=== PATIENT | male | born 1960 | race Two or more races ===

== ENCOUNTER 2023-09-09 15:51 | Inpatient (IN) | payer MEDICAID, OTHER ==
[~2023-09-09] VITALS: Ht 177.8 cm; Wt 95.4 kg
[2023-09-09 16:57] LABS: Basophils # (auto) 0.1 10 ^3/uL (0-0.2); Basophils % (auto) 0.8 % (0.0-2.0); Eosinophils # (auto) 1.4 10 ^3/uL (0-0.8); Eosinophils % (auto) 13.6 % (0.0-7.0); Hematocrit 42.3 % (41.0-53.0); Hemoglobin 14.5 g/dL (13.5-17.5); Lymphocytes # (auto) 2.6 10 ^3/uL (0.4-5.4); Mean Corpuscular Hemoglobin 28.6 pg (28.0-32.0); Mean Corpuscular Hgb Conc. 34.4 g/dL (32.0-36.0); Mean Corpuscular Volume 83.3 fL (80.0-100.0); Monocytes # (auto) 1.1 10 ^3/uL (0-1.3); Monocytes % (auto) 11.2 % (0.0-12.0); Neutrophils # (auto) 4.8 10 ^3/uL (1.6-8.6); Neutrophils % (auto) 48.4 % (37.0-80.0); Red Blood Cells 5.08 10^6/uL (4.5-5.90); Red Cell Distribution Width 13.9 % (11.8-14.3); White Blood Cell 9.9 10^3/uL (4.4-10.8)
[2023-09-09 17:09] LABS: Alanine Aminotransferase 36 U/L (7-40); Albumin 3.9 g/dL (3.2-4.8); Alkaline Phosphatase 114 U/L (46-116); Anion Gap 8 (5-15); Aspartate Aminotransferase 25 U/L (13-40); BUN/Creatinine Ratio 12.7 (10.0-20.0); Bilirubin, Total 0.4 mg/dL (0.2-1.0); Blood Urea Nitrogen 14 mg/dL (9-23); Calcium 9.2 mg/dL (8.7-10.4); Carbon Dioxide 24 mmol/L (20-30); Chloride 104 mmol/L (98-107); Glucose 90 mg/dL (74-106); Lipase 42 U/L (12-53); Potassium 3.5 mmol/L (3.5-5.1); Sodium 136 mmol/L (136-145); Total Protein 8.6 g/dL (5.7-8.2)
[2023-09-09 20:08] LABS: Urine Bacteria FEW /hpf (None Seen); Urine Blood Negative /uL (Negative); Urine Clarity Clear (Clear); Urine Color Yellow (Yellow); Urine Mucus MODERATE (None Seen); Urine Protein, UAD 1+ (Negative); Urine Specific Gravity 1.028 (1.001-1.035); Urine Urobilinogen Normal (Negative); Urine WBC 2 /hpf (0 - 3); Urine pH 5.5 (5.0-9.0)
[2023-09-09] MEDS: HYDROcodone-ACET 10/325MG TAB PO ONE (22:03)
[2023-09-09] MEDS ORDERED: ACETAMINOPHEN 325 MG TAB PO PRN (23:15)
[2023-09-09] MEDS ORDERED: ONDANSETRON HCL 4 MG/2 ML VIAL IV PRN (23:15)
[2023-09-09] MEDS ORDERED: MORPHINE SULFATE INJ 2 MG/ml SYRG IV PRN ×2 (23:15→23:30)
[2023-09-09] MEDS ORDERED: DOCUSATE SOD 100 MG CAP PO PRN (23:15)
[2023-09-09] MEDS ORDERED: NITROGLYCERIN 0.4 MG SL TAB SL PRN (23:30)
[2023-09-10] VITALS (9 sets, daily range): BP systolic 116–136; BP diastolic 67–88; PULSE 81–116; RESP 16–20; TEMP 98–99.2; O2SAT 94–99
[2023-09-10 04:49] LABS: Basophils # (auto) 0.1 10 ^3/uL (0-0.2); Basophils % (auto) 0.7 % (0.0-2.0); Eosinophils # (auto) 1.3 10 ^3/uL (0-0.8); Hematocrit 39.6 % (41.0-53.0); Hemoglobin 13.9 g/dL (13.5-17.5); Lymphocytes # (auto) 1.9 10 ^3/uL (0.4-5.4); Lymphocytes % (auto) 23.2 % (10.0-50.0); Mean Corpuscular Hemoglobin 29.1 pg (28.0-32.0); Mean Corpuscular Volume 83.1 fL (80.0-100.0); Monocytes # (auto) 0.9 10 ^3/uL (0-1.3); Monocytes % (auto) 10.8 % (0.0-12.0); Neutrophils # (auto) 4.1 10 ^3/uL (1.6-8.6); Neutrophils % (auto) 49.4 % (37.0-80.0); Nucleated Red Blood Cells % 0.1 %; Red Blood Cells 4.77 10^6/uL (4.5-5.90); Red Cell Distribution Width 14.2 % (11.8-14.3); White Blood Cell 8.2 10^3/uL (4.4-10.8)
[2023-09-10] MEDS ORDERED: LEVO500T91 PO (04:49)
[2023-09-10] MEDS: HYDROcodone-ACET 5/325MG TAB PO PRN (04:52)
[2023-09-10 05:01] LABS: Alanine Aminotransferase 30 U/L (7-40); Albumin 3.5 g/dL (3.2-4.8); Alkaline Phosphatase 94 U/L (46-116); Anion Gap 8 (5-15); Aspartate Aminotransferase 18 U/L (13-40); BUN/Creatinine Ratio 12.7 (10.0-20.0); Bilirubin, Total 0.5 mg/dL (0.2-1.0); Blood Urea Nitrogen 13 mg/dL (9-23); Calcium 8.9 mg/dL (8.7-10.4); Carbon Dioxide 26 mmol/L (20-30); Chloride 103 mmol/L (98-107); Glucose 105 mg/dL (74-106); Potassium 3.4 mmol/L (3.5-5.1); Sodium 137 mmol/L (136-145); Total Protein 7.8 g/dL (5.7-8.2)
[2023-09-10 05:07] LABS: Eosinophils % (auto) 15.9 % (0.0-7.0)
[2023-09-10 14:45] LABS: Amphetamine Screen, Urine Neg (NEGATIVE); Barbiturate Scree,Urine Neg (NEGATIVE); Benzodiazephine Screen, Urine Neg (NEGATIVE); Cocaine Screen, Urine Neg (NEGATIVE); Opiate Scree,Urine Neg (NEGATIVE); Phencyclidine Screen, Urine Neg (NEGATIVE)
[2023-09-10 14:46] LABS: Cannabinoid Screen, Urine Neg (NEGATIVE)
[2023-09-10] MEDS: POTASSIUM CHL 20 Meq TABLET PO ONE (16:49)
[2023-09-10] MEDS: IOHEXOL 300 MG/ML 100ML BOTTLE IJ ONE (18:52)
[2023-09-11 01:21] VITALS: BP 129/63; PULSE 75; RESP 18; TEMP 98.5; O2SAT 94
[2023-09-11 05:00] VITALS: BP 123/80; PULSE 92; RESP 18; TEMP 98.2; O2SAT 96
[2023-09-11 06:01] LABS: Anion Gap 7 (5-15); Carbon Dioxide 26 mmol/L (20-30); Chloride 103 mmol/L (98-107); Potassium 3.7 mmol/L (3.5-5.1); Sodium 136 mmol/L (136-145)
[2023-09-11 06:02] LABS: Calcium 9.3 mg/dL (8.7-10.4)
[2023-09-11 06:07] LABS: BUN/Creatinine Ratio 14.1 (10.0-20.0); Blood Urea Nitrogen 14 mg/dL (9-23); Glucose 105 mg/dL (74-106)
[2023-09-11 06:19] LABS: Basophils # (auto) 0 10 ^3/uL (0-0.2); Basophils % (auto) 0.5 % (0.0-2.0); Eosinophils # (auto) 1.3 10 ^3/uL (0-0.8); Eosinophils % (auto) 14.9 % (0.0-7.0); Hematocrit 38.6 % (41.0-53.0); Hemoglobin 13.6 g/dL (13.5-17.5); Lymphocytes % (auto) 22.5 % (10.0-50.0); Mean Corpuscular Hemoglobin 29.2 pg (28.0-32.0); Mean Corpuscular Hgb Conc. 35.3 g/dL (32.0-36.0); Mean Corpuscular Volume 82.7 fL (80.0-100.0); Monocytes # (auto) 0.9 10 ^3/uL (0-1.3); Monocytes % (auto) 10.4 % (0.0-12.0); Neutrophils # (auto) 4.5 10 ^3/uL (1.6-8.6); Neutrophils % (auto) 51.7 % (37.0-80.0); Red Blood Cells 4.66 10^6/uL (4.5-5.90); White Blood Cell 8.7 10^3/uL (4.4-10.8)
[2023-09-11 09:00] VITALS: BP 104/76; PULSE 89; RESP 15; TEMP 98.2; O2SAT 96
[2023-09-11 09:08] LABS: INR 1.21 (0.9-1.15); Partial Thromboplastin Time 33.6 SEC (24.5-34.5); Prothrombin Time 12.6 sec (9.3-11.8)
[2023-09-11 11:02] LABS: Free T3 2.57 pg/mL (2.3-4.2)
[2023-09-11 11:03] LABS: Free T4 (Free Thyroxine) 1.03 ng/dL (0.89-1.76)
[2023-09-11] MEDS: LIDOCAINE 2%HCL (LOCAL ANESTH.) INJ 10ml MDV ONE (11:05)
[2023-09-11] MEDS: MIDAZOLAM HCL 2MG/2ML 2ml VIAL (1mg/ml) IV ONE (11:05)
[2023-09-11] MEDS: fentaNYL CITRATE 100 MCG/2 ML VL IV ONE (11:05)
[2023-09-11 12:56] VITALS: BP 120/77; PULSE 94; RESP 16; TEMP 98; O2SAT 96
[2023-09-11] MEDS: ENOXAPARIN SOD 40 MG/0.4 ML SYRINGE SC ONE (14:30)
[2023-09-11] MEDS: GABAPENTIN 100 MG CAP PO SCH (14:32)
[2023-09-11] MEDS: CAPSAICIN 0.025% CREAM 60GM TOP SCH (14:32)
[2023-09-11] MEDS ORDERED: GABA-1308 PO (16:18)
[2023-09-11] MEDS ORDERED: [UNRECOGNIZED DRUG - CODE] EX (16:18)
[2023-09-12] MEDS ORDERED: ENOXAPARIN SOD 40 MG/0.4 ML SYRINGE SC SCH (10:00)
== END 2023-09-11 18:00 | disposition home or self-care (01) | DRG 144 ==
LOC: ER 15:51 → TELE 23:31 → TELE-CENTR 09-10 04:20 → CENTRAL 09-10 15:26
PROVIDERS: ADMIT Student in an Organized Health Care Education/Training Program; ATTEND Student in an Organized Health Care Education/Training Program
PROC: 0BBF3ZX Excision of Right Lower Lung Lobe, Percutaneous Approach, Diagnostic (ICD-10-PCS; principal; 2023-09-11)
DX: R91.8 Other nonspecific abnormal finding of lung field (principal); I11.0 Hypertensive heart disease with heart failure; I50.32 Chronic diastolic (congestive) heart failure; E87.6 Hypokalemia; Z82.49 Family history of ischemic heart disease and other diseases of the circulatory system; Z79.899 Other long term (current) drug therapy
CPT/HCPCS: 10005; 36415; 71045; 71250; 71260; 76705; 77012; 80048; 80053; 80307; 81001; 82607; 83690; 83880; 84439; 84443; 84481; 84484; 85025; 85610; 85730; 93005; 93306; 93970; 93971; G0378; J2001

== ENCOUNTER 2023-09-26 19:47 | Emergency (ER) | payer MEDICAID ==
[~2023-09-26] VITALS: Ht 406.4 cm; Wt 93.6 kg
[~2023-09-26 19:47] MED LIST: GABA-1308 PO; LEVO500T91 PO; [UNRECOGNIZED DRUG - CODE] EX
[2023-09-26 20:27] LABS: Urine Bacteria None Seen /hpf (None Seen)
[2023-09-26 21:32] LABS: Urine Blood Negative /uL (Negative); Urine Clarity Clear (Clear); Urine Color Light-Yellow (Yellow); Urine Protein, UAD Negative (Negative); Urine Specific Gravity 1.023 (1.001-1.035); Urine Urobilinogen Normal (Negative); Urine WBC 1 /hpf (0 - 3); Urine pH 6.5 (5.0-9.0)
[2023-09-26] MEDS: IOHEXOL 300 MG/ML 100ML BOTTLE IJ ONE (22:25)
[2023-09-26 22:39] LABS: Basophils # (auto) 0.1 10 ^3/uL (0-0.2); Basophils % (auto) 0.8 % (0.0-2.0); Eosinophils # (auto) 0.9 10 ^3/uL (0-0.8); Eosinophils % (auto) 9.1 % (0.0-7.0); Hematocrit 40.9 % (41.0-53.0); Hemoglobin 13.6 g/dL (13.5-17.5); Lymphocytes # (auto) 2.9 10 ^3/uL (0.4-5.4); Lymphocytes % (auto) 30.5 % (10.0-50.0); Mean Corpuscular Hemoglobin 27.8 pg (28.0-32.0); Mean Corpuscular Hgb Conc. 33.3 g/dL (32.0-36.0); Mean Corpuscular Volume 83.5 fL (80.0-100.0); Monocytes # (auto) 0.7 10 ^3/uL (0-1.3); Monocytes % (auto) 7.5 % (0.0-12.0); Neutrophils # (auto) 4.9 10 ^3/uL (1.6-8.6); Neutrophils % (auto) 52.1 % (37.0-80.0); Nucleated Red Blood Cells % 0.1 %; Platelet Count (auto) 329 10^3/uL (140-450); Red Cell Distribution Width 14.5 % (11.8-14.3); White Blood Cell 9.5 10^3/uL (4.4-10.8)
[2023-09-26 22:50] LABS: Chloride 106 mmol/L (98-107); Sodium 138 mmol/L (136-145)
[2023-09-26 22:51] LABS: Anion Gap 7 (5-15); Carbon Dioxide 25 mmol/L (20-30)
[2023-09-26 22:52] LABS: Calcium 9.9 mg/dL (8.7-10.4)
[2023-09-26 22:56] LABS: BUN/Creatinine Ratio 16.7 (10.0-20.0); Blood Urea Nitrogen 18 mg/dL (9-23); Glucose 106 mg/dL (74-106)
[2023-09-27 02:13] VITALS: BP 142/79; TEMP 98.1
[2023-09-27 02:15] VITALS: PULSE 83; RESP 13; O2SAT 96
[2023-09-27] MEDS ORDERED: FLUC200T50 PO (02:24)
== END 2023-09-27 02:55 | disposition home or self-care (01) ==
LOC: ER 19:47
DX: B38.0 Acute pulmonary coccidioidomycosis (principal)
CPT/HCPCS: 36415; 71260; 80048; 81001; 85025; 99285; Q9967